=== PATIENT | male | born 1955 | race Caucasian/White ===

== ENCOUNTER 2019-01-09 06:55 | Day surgery (SDC) | payer OTHER ==
[2019-01-07 14:52] VITALS: BMI 26.6
[~2019-01-09 06:55] MED LIST: LIDOCAINE 1% 20 ML VIAL (10MG/ML) FOR IV START INTRADERMA PRN
[2019-01-09 07:19] VITALS: TEMP 98.8
[2019-01-09] MEDS: LACTATED RINGERS 1,000 ML IV SCH ×2 (07:28→07:50)
[2019-01-09] MEDS ORDERED: DEXTROSE 10 % IN WATER 250 ML IV ONE ×2 (07:39→08:00)
[2019-01-09 07:41] LABS: Glucose,Whole Blood 71 mg/dL (75-99)
[2019-01-09 07:41] LABS: Glucose,Whole Blood 70 mg/dL (75-99)
[2019-01-09] MEDS ORDERED: LIDOCAINE 1% INJ 10MG/ML (20 ML MDV) ONE (07:50)
[2019-01-09] MEDS ORDERED: PROPOFOL 10 MG/ML 20 ML VIAL IV ONE (07:50)
--- NOTE | 2019-01-09 08:00 | P.PCN ---
Date of Procedure: 01/09/19 Procedure(s) Performed: BRIEF HISTORY: Patient is a 63-year-old, pleasant, white male, scheduled for an upper endoscopy as a part of evaluation of long-standing history of GERD of almost 15 years duration. His been maintained on lansoprazole 30 mg daily but has breakthrough nocturnal symptoms quite often. He scheduled for an upper endoscopy to rule out completed reflux disease. PROCEDURE PERFORMED: Esophagogastroduodenoscopy with biopsy. PREOPERATIVE DIAGNOSIS: Long-standing history of GERD. IV sedation per anesthesia. PROCEDURE: After informed consent was obtained, the patient was brought into the endoscopy unit. IV sedation was administered by Anesthesia under continuous monitoring. Initially the Olympus GIF-140 video endoscope was inserted into the mouth. Esophagus intubated without any difficulty. It was gradually advanced into the stomach and duodenum and carefully examined. The bulb and the second part of the duodenum appeared normal. The scope at this time was withdrawn to the stomach, adequately insufflated with air, and upon careful examination, mucosa of the antrum had mild gastritis and biopsies were done from this area. The, body, cardia and the fundus appeared normal. The scope was then withdrawn into the esophagus. The GE junction was located at 42 cm from the incisors. The esophagus appeared normal. There were no erosions or ulcerations seen, biopsies were done from the distal esophagus and the patient tolerated the procedure well. IMPRESSION: 1. Mild antral gastritis. 2. Normal appearing esophagus with no evidence of esophagitis or Mohamud's esophagus. RECOMMENDATIONS: The findings of this examination were discussed with the patient as well as his family. He was advised to follow with the biopsy results. He will continue with lansoprazole 30 mg daily but he was advised to take it half hour before dinnertime and follow antireflux measures.
[2019-01-09] MEDS ORDERED: IV FLUID CONTINUATION 1,000 ML IV ONE (08:03)
[2019-01-09 08:07] LABS: Glucose,Whole Blood 166 mg/dL (75-99)
[2019-01-09 08:22] VITALS: BP 134/85; PULSE 61; RESP 18
== END 2019-01-09 08:46 | disposition home or self-care (01) ==
LOC: ORWHC2ENDO 06:55
PROVIDERS: ATTEND Internal Medicine Gastroenterology
DX: K29.50 Unspecified chronic gastritis without bleeding (principal); K21.9 Gastro-esophageal reflux disease without esophagitis; I10 Essential (primary) hypertension; E78.5 Hyperlipidemia, unspecified; E11.9 Type 2 diabetes mellitus without complications; Z79.84 Long term (current) use of oral hypoglycemic drugs; Z79.899 Other long term (current) drug therapy
CPT/HCPCS: 88305; 43239; J2001; J2704

== ENCOUNTER → 2019-03-02 | Outpatient (CLI) | payer OTHER ==
--- NOTE | 2019-03-02 11:25 | US ---
EXAMINATION TYPE: US venous doppler duplex LE LT DATE OF EXAM: 03/02/2019 10:57 AM COMPARISON: NONE CLINICAL HISTORY: M79.605 Pain left leg. SIDE PERFORMED: Left TECHNIQUE: The lower extremity deep venous system is examined utilizing real time linear array sonog lilo with graded compression, doppler sonography and color-flow sonography. VESSELS IMAGED: External Iliac Vein (EIV) Common Femoral Vein Deep Femoral Vein Greater Saphenous Vein * Femoral Vein Popliteal Vein Small Saphenous Vein * Proximal Calf Veins (* superficial vessels) Grayscale, color doppler, spectral doppler imaging performed of the deep veins of the left lower extr emity. There is normal flow, compressibility, vascular waveforms. Left Leg: Negative for DVT IMPRESSION: No sonographic evidence of deep venous thrombosis within the left lower extremity.
== END ==
LOC: RADUSWWP 10:21
PROVIDERS: ATTEND Internal Medicine
DX: M79.605 Pain in left leg (principal)

== ENCOUNTER → 2019-12-18 | Outpatient (CLI) | payer OTHER ==
--- NOTE | 2019-12-18 15:45 | ECHOF ---
Referral Reason:I50.9 Edema due to congestive heart failure MEASUREMENTS -------- HEIGHT: 185.4 cm WEIGHT: 104.3 kg BP: IVSd: 1.3 cm (0.6 - 1.1) LVIDd: 5.1 cm (3.9 - 5.3) LVPWd: 1.5 cm (0.6 - 1.1) IVSs: 2.3 cm LVIDs: 2.3 cm LVPWs: 2.1 cm LAESV Index (A-L): 27.28 ml/m Ao Diam: 3.2 cm (2.0 - 3.7) AV Cusp: 2.2 cm (1.5 - 2.6) LA Diam: 3.9 cm (2.7 - 3.8) MV EXCURSION: 18.395 mm (> 18.000) MV EF SLOPE: 122 mm/s (70 - 150) EPSS: 0.7 cm MV E Carlos: 1.09 m/s MV DecT: 237 ms MV A Carlos: 0.55 m/s MV E/A Ratio: 2.00 RAP: 5.00 mmHg RVSP: 16.50 mmHg FINDINGS -------- This was a technically good study. The left ventricular size is normal. There is moderate concentric left ventricular hypertrophy. O verall left ventricular systolic function is normal with, an EF between 55 - 60 %. The diastolic fi lling pattern is normal for the age of the patient 13.58. The right ventricle is normal in size. The left atrial size is normal. Normal LA size by volume 22+/-6 ml/m2. The right atrial size is normal. The aortic valve is trileaflet and appears structurally normal. The mitral valve is normal. There is trace mitral regurgitation. The tricuspid valve appears structurally normal. Trace tricuspid regurgitation present. Right carlos tricular systolic pressure is normal at < 35 mmHg. There is no pulmonic regurgitation present. The aortic root size is normal. Normal inferior vena cava with normal inspiratory collapse consistent with estimated right atrial pre ssure of 5 mmHg. There is no pericardial effusion. CONCLUSIONS -------- 1. The left ventricular size is normal. 2. There is moderate concentric left ventricular hypertrophy. 3. Overall left ventricular systolic function is normal with, an EF between 55 - 60 %. 4. The diastolic filling pattern is normal for the age of the patient 13.58 5. There is trace mitral regurgitation. 6. Trace tricuspid regurgitation present. 7. There is no pericardial effusion. PHOTOGRAPHER APPRENTICE: Germaine Lynch RDCS
== END | disposition home or self-care (01) ==
LOC: RADECHMAIN 13:52
PROVIDERS: ATTEND Internal Medicine
DX: I51.7 Cardiomegaly (principal)
CPT/HCPCS: 93306

== ENCOUNTER → 2021-03-08 | Outpatient (CLI) | payer OTHER ==
[~2021-03-08] MED LIST changes: -LIDOCAINE 1% 20 ML VIAL (10MG/ML) FOR IV START INTRADERMA PRN; +REGADENOSON 0.4 MG/5 ML SYRINGE IV PRN
--- NOTE | 2021-03-08 11:31 | NM ---
EXAMINATION TYPE: NM stress lexiscan cardiolite DATE OF EXAM: 03/08/2021 COMPARISON: NONE HISTORY: Z01.810 TECHNIQUE: After the intravenous administration of 9.54 mCi Tc 99m Sestamibi - Cardiolite resting SP ECT images acquired 45 minutes post injection. The patient received 0.4mg Lexiscan, 25.2 mCi Tc 99m Sestamibi - Stress images obtained [address] injection FINDINGS: Review of stress and rest SPECT images demonstrates decreased apical uptake on stress as compared to rest images, uptake also reduced along the inferior wall the left ventricle towards the base the hear t on stress as compared to rest images. Gated analysis shows normal wall motion with an estimated le ft ventricular ejection fraction of 61 %. IMPRESSION: Pharmacologically induced left ventricular myocardial ischemia. A Yellow level critical message alert has been initiated for Audi Phan MD via the [employer] Critical Results System on 03/08/2021 11:28 AM. This message alert has been sent to MD nya Ulloa the preferences provided by the clinician for the receipt of Radiology Critical Findings. Message ID [id number].
--- NOTE | 2021-03-09 08:55 | EST ---
EXERCISE STRESS AGE: 65 SEX: M HT: 6'3" WT: 230 lbs. PROTOCOL: Pre surgical clearance STAGE: NA DURATION OF EXERCISE: 5 minutes HEART RATE REST: 71 BLOOD PRESSURE REST: 132/69 MAXIMUM HEART RATE ACHIEVED: 82 MAXIMUM BLOOD PRESSURE: 132/69 85% MPHR: 133 100% MPHR: 157 METS: NA INDICATIONS: Chest pain. STRESS DATA: Heart rate 71, pressure is 132/69 mmHg. Baseline EKG showed sinus mechanism with PVCs. 0.4 mg of Lexiscan per protocol. Max heart rate was 83 beats per minute. Maximum pressure was 132/69 mmHg. Clinically the patient did not have any symptoms and the EKG did not show any significant ST or T-wave abnormalities concerning for ischemia. CONCLUSION: 1. Nondiagnostic electrocardiogram stress testing in response to Lexiscan. 2. Please follow up on the Cardiolite portion on a separate report from Radiology Department. MMODL / IJN: [id number] /
== END | disposition home or self-care (01) ==
LOC: RADNMMAIN 08:09
PROVIDERS: ATTEND Internal Medicine
DX: Z01.810 Encounter for preprocedural cardiovascular examination (principal); I25.9 Chronic ischemic heart disease, unspecified
CPT/HCPCS: 93017; 78452; A9500; J2785

== ENCOUNTER → 2021-04-19 | Outpatient (CLI) | payer OTHER ==
[2021-04-19 12:00] LABS: INR 0.9 (<1.2)
[2021-04-19 12:17] LABS: Appearance,Urine Clear (Clear); Bilirubin,Urine Negative (Negative); Blood,Urine Negative (Negative); Color,Urine Light Yellow; Glucose,Urine (UA) 4+ (Negative); Ketones,Urine Negative (Negative); Leukocyte Esterase,Urine Negative (Negative); Nitrite,Urine Negative (Negative); PH, Urine 5.5 (5.0-8.0); Protein,Urine Negative (Negative); Specific Gravity,Urine 1.038 (1.001-1.035); Urobilinogen,Urine <2.0 mg/dL (<2.0)
[2021-04-19 12:19] LABS: Partial Thromboplastin Time 21.9 sec (22.0-30.0)
[2021-04-19 15:06] LABS: HCT 34.2 % (39.6-50.0); HGB 10.1 g/dL (13.0-17.0); MCH 22.1 pg (27.0-32.0); MCHC 29.5 g/dL (32.0-37.0); MCV 74.8 fL (80.0-97.0); Mean Platelet Volume 10.3 fL (9.5-12.2); Platelet Count 203 X 10*3/uL (140-440); RBC 4.57 X 10*6/uL (4.40-5.60); WBC 5.71 X 10*3/uL (4.50-10.00)
[2021-04-19 16:23] LABS: ALT 30 U/L (10-49); AST 23 U/L (14-35); Albumin 4.1 g/dL (3.8-4.9); Albumin/Globulin Ratio 1.46 (1.60-3.17); Alkaline Phosphatase 89 U/L (41-126); BUN/Creat Ratio 18.89 Ratio (12.00-20.00); Carbon Dioxide 20.8 mmol/L (20.0-27.5); Chloride 100 mmol/L (96-109); Globulin 2.8 g/dL (1.6-3.3); Glucose 252 mg/dL (70-110); Non-African American GFR(CKD) 90.6 (60.0-200.0); Potassium 4.6 mmol/L (3.5-5.5); Sodium 133 mmol/L (135-145); Total Bilirubin <0.20 mg/dL (0.30-1.20); Total Protein 6.9 g/dL (6.2-8.2)
== END | disposition home or self-care (01) ==
LOC: LABPAT 10:39
PROVIDERS: ATTEND Orthopaedic Surgery
DX: Z01.812 Encounter for preprocedural laboratory examination (principal)
CPT/HCPCS: 80053; 81003; 85027; 85610; 85730; 87070; 93005

== ENCOUNTER → 2021-04-21 | Outpatient (CLI) | payer OTHER | END | disposition home or self-care (01) | LOC: LABWHC1 11:33 | PROVIDERS: ATTEND Orthopaedic Surgery | DX: E11.9 Type 2 diabetes mellitus without complications (principal); M17.0 Bilateral primary osteoarthritis of knee; M23.221 Derangement of posterior horn of medial meniscus due to old tear or injury, right knee; M62.552 Muscle wasting and atrophy, not elsewhere classified, left thigh; M71.22 Synovial cyst of popliteal space [Baker], left knee; Z87.828 Personal history of other (healed) physical injury and trauma | CPT/HCPCS: 36415; 83036 ==

== ENCOUNTER 2021-07-10 10:45 | Observation (INO) | payer OTHER ==
[2021-07-06 11:46] VITALS: BMI 28.1
[~2021-07-10 10:45] MED LIST changes: +ACETAMINOPHEN TAB 500 MG TAB PO PRN; +MELOXICAM 7.5 MG TAB PO PRN; +ONDANSETRON 4 MG/2 ML VIAL IVP PRN; -REGADENOSON 0.4 MG/5 ML SYRINGE IV PRN; +TRANEXAMIC ACID IN NACL,ISO-OS 1,000 MG in SALINE 1 100ML.BAG IVPB PRN
[2021-07-10] MEDS ORDERED: LACTATED RINGERS 1,000 ML IV ONE ×4 (11:12→16:30)
[2021-07-10] MEDS ORDERED: LIDOCAINE 1% (10MG/ML) FOR IV START INTRADERMA PRN (11:14)
[2021-07-10] MEDS ORDERED: ONDANSETRON 4 MG/2 ML VIAL IVP ONE (11:14)
[2021-07-10] MEDS ORDERED: DEXAMETHASONE SOD PHOSPHATE 4 MG/ML 1 ML VIAL IV ONE (11:14)
[2021-07-10] MEDS ORDERED: MIDAZOLAM 2 MG/2 ML VIAL IV PRN (11:14)
[2021-07-10] MEDS ORDERED: fentaNYL (PF) 50 MCG/ML 2 ML AMP IV ONE (12:11)
[2021-07-10] MEDS ORDERED: MIDAZOLAM 2 MG/2 ML VIAL IV ONE (12:11)
[2021-07-10] MEDS ORDERED: ROPIVACAINE 5 MG/ML 30 ML VIAL ONE (12:35)
[2021-07-10] MEDS ORDERED: DEXAMETHASONE SOD PHOSPHATE 4 MG/ML 1 ML VIAL ONE (12:35)
[2021-07-10] MEDS ORDERED: SODIUM CHLORIDE 0.9% (PF) 10 ML VIAL ONE (12:35)
[2021-07-10] MEDS ORDERED: fentaNYL (PF) 50 MCG/ML 2 ML AMP ONE (12:35)
[2021-07-10] MEDS ORDERED: MIDAZOLAM 2 MG/2 ML VIAL ONE (12:35)
[2021-07-10] MEDS ORDERED: PROPOFOL 10 MG/ML 20 ML VIAL IV ONE (12:35)
[2021-07-10] MEDS ORDERED: SUCCINYLCHOLINE CHLORIDE 100 MG/5 ML SYR IV ONE (12:35)
[2021-07-10] MEDS ORDERED: LIDOCAINE 2% INJ 20 MG/ML (2 ML VIAL) ONE (12:35)
[2021-07-10] MEDS ORDERED: TRANEXAMIC ACID IN NACL,ISO-OS 1,000 MG/100 ML BAG ONE (12:35)
[2021-07-10] MEDS ORDERED: ceFAZolin 3,000 MG in SODIUM CHLORIDE 0.9% IRRIGATIO 3,000 ML IRRIGATION ONE (12:40)
[2021-07-10] MEDS ORDERED: ROPIVACAINE 0.2%-NS ON-Q PUMP 1,090 MG, EMPTY PAIN BALL 1 EACH MISCELLANE PRN (13:10)
--- NOTE | 2021-07-10 13:44 | P.ANPRN ---
Procedure Note - Anesthesia - Nerve Block Performed Left Adductor Canal Infusion Time Out Performed: Yes Date of Procedure: 07/10/21 Procedure Start Time: 12:10 Procedure Stop Time: 12:21 Location of Patient: PreOp Indication: Requested by Surgeon Specifically requested for management of pain by DrYvette: Tobias Hollins Sedation Type: Sedate with meaningful contact maintained Preparation: Sterile Prep, Sterile Dressing Position: Supine Needle Types: Pajunk Needle Gauge: 18 Ultrasound used to visualize needle placement: Yes Ultrasound used to observe medication spread: Yes Injectate: 0.5% Ropivacaine (see comment for volume) (20 ml +10 ML NS) Blood Aspirated: No Pain Paresthesia on Injection Noted: No Resistance on Injection: Normal Image Stored and Saved: Yes Events: Uneventful and Well Tolerated
--- NOTE | 2021-07-10 13:46 | P.ANPRN ---
Procedure Note - Anesthesia - Nerve Block Performed Left iPack Single Time Out Performed: Yes Date of Procedure: 07/10/21 Procedure Start Time: Procedure Stop Time: Location of Patient: PreOp Indication: Requested by Surgeon Specifically requested for management of pain by DrYvette: Tobias Hollins Sedation Type: Sedate with meaningful contact maintained Preparation: Sterile Prep Position: Right Lateral Needle Types: Pajunk Needle Gauge: 21 Ultrasound used to visualize needle placement: Yes Ultrasound used to observe medication spread: Yes Injectate: 0.5% Ropivacaine (see comment for volume) (20 ML + 10 ml NS +4 mg dexamethason) Blood Aspirated: No Pain Paresthesia on Injection Noted: No Resistance on Injection: Normal Image Stored and Saved: Yes Events: Uneventful and Well Tolerated
[2021-07-10] MEDS ORDERED: VANCOMYCIN 1,000 MG VIAL MISCELLANE ONE (14:03)
--- NOTE | 2021-07-10 14:30 | P.OP ---
Date of Procedure: 07/10/21 Procedure(s) Performed: PREOPERATIVE DIAGNOSIS: Left knee severe osteoarthritis with genu varum POSTOPERATIVE DIAGNOSIS: Left knee severe osteoarthritis with genu varum OPERATION: Left knee cemented total replacement arthroplasty. ANESTHESIA: General plus regional (IPAC and catheter for ACB) ESTIMATED BLOOD LOSS: 75 ml. PROCESS CONTROLS TECHNICIAN: Germaine Boo PA-C (assistance with: patient positioning, retraction, exposure, hemostasis, leg positioning, implantation, irrigation, closure, dressing) COMPLICATIONS: None apparent. COMPONENTS IMPLANTED: Persona system from [employer] INDICATIONS: Gilmer is a 65 year old male with a history of left knee osteoarthritis. Conservative treatment has been tried and has been unsuccessful in controlling symptoms adequately. He has a medial staple for presumed ligament repair that was placed in the remote past which does not appear to be in a position to affect surgery. The operation of knee replacement has been discussed at length in the office, as well as potential risks and complications. These are inclusive of, but not limited to: bleeding, infection, scarring, discomfort, blood vessel and nerve damage, need for further surgery, failure to relieve symptoms, persistence, recurrence, or worsening of problems, loosening, dislocation, wear, blood clot, pulmonary embolism, , gait dysfunction, stiffness, and other risks as discussed in the office. The patient elects to proceed and the consent form has been signed. PROCEDURE: The patient was taken to the operating room and positioned on the operating room table in the supine position. Anesthesia was initiated. Care was taken to make sure that all pressure points were adequately padded. The operative lower extremity was prepped and draped in the usual aseptic fashion using ChloraPrep. Ioban drape was used for the case and the patient received intravenous antibiotics within one hour of the incision. A pneumotourniquet and leg coronel were used for the case. The limb was exsanguinated with an Esmarch bandage and the tourniquet was inflated to 300 mmHg. Time-out was called confirming the patient's identity, side, procedure and administration of antibiotics and tranexamic acid, 1 g IV. The incision was then created midline directly over the knee, carried down through skin and into the subcutaneous tissues and down to fascia. Full thickness subcutaneous medial flap was developed. Medial parapatellar arthrotomy was performed and the interior of the knee was inspected. There was end-stage osteoarthritis of the knee with a mild to moderate genu varum type deformity. The fat pad was excised and proximal medial release on the tibia was completed using meticulous dissection and a curved osteotome. The anterior cruciate ligament was taken down. Note was made of significant attrition of the anterior and significant degenerative appearance of the posterior cruciate ligaments. The exposure was excellent. The knee was flexed 90 degrees and the patella was everted. A spot was chosen on the femur approximately 1 cm anterior to the posterior cruciate ligament insertion and an intramedullary hole was created within the femur. The intramedullary guide was then set to 5 degrees of valgus. The distal cutting block was attached and pinned into position. An appropriate amount of distal femoral resection was set to +2 mm for his preop flexion contracture. The oscillating saw was then used to make the distal femoral cut. This cut was confirmed to be flat with the flat end of an osteotome. The retractors were placed around the tibia and the tibial surface was addressed. The angle, rotation, and depth of resection was adjusted using an extramedullary cutting guide. The guide had a built-in 3 degree posterior slope cut. Once the cutting guide was adjusted appropriately and in line with the axis of the tibia and confirmed to be in good position in relation to the second metatarsal and transmalleolar axis, the tibial cut was then created with protection of the posterior neurovascular structures and the collateral ligaments. The tibial cut surface was removed and sized. Femoral sizing was then accomplished using anterior referencing. Care was taken to analyze the posterior condyles for signs of deficiency or severe wear, and adjustments to the guide were made, as appropriate. 3 degree external rotation pins were placed. The cutting jig for the femur was applied to these pins. The planned cuts were further analyzed prior to performing them with the oscillating saw. No femoral notching was produced and there was no apparent contact with the medial staple. Bone fragments were removed and the cut surfaces were finished, as necessary, with a reciprocating saw. Spacer block technique was then used to confirm that the flexion and extension gaps were equal. Soft tissue releases and adjustment of the tibial and/or femoral cuts were made, as necessary, until the gaps were equal. This included release of the posterior cruciate ligament, which was tight in this patient. The femur was then further finished for a posterior cruciate ligament substi tuting component. Patellar resurfacing was performed using a reamer. The size of the required patellar component was estimated and the patellar surface was then reamed down to a residual thickness which would recreate the soboba thickness with the component. The exact placement of the patellar component was adjusted for position based on preoperative x-rays and intraoperative findings. The trial components were inserted. The tibial tray was allowed to self center and the patella was noted to track very well. The position of the tibial component was marked and the tibia was then finished for a stemmed tibial component. Cement was mixed on the back table and applied to the final components. Trial components were removed and the cut surfaces of the bone were pulse lavaged thoroughly and dried. Cement was then applied to the tibial surface and pressurized into the surface using finger pressurization technique. The tibial component was then applied and excess cement was removed after it was impacted securely and noted to be flush with the cut surface. In similar fashion, the cement was applied to the cut femoral surface, pressurized in using finger pressurization and the component was impacted into place. Excess cement was removed. The polyethylene spacer was then implanted and locked into position. The patellar component was then applied in similar technique and a patellar clamp was used to hold the patella in place as the cement hardened. Once the cement had fully hardened, the knee was reinspected. Any other cement extrusion was removed and final kinematic testing showed range of motion from 0 to 130 degrees with excellent stability, both medially and laterally and appropriate alignment of the leg. Patellar tracking was excellent. The knee was then thoroughly pulse lavaged with normal saline. The tourniquet was deflated and hemostasis was obtained with electrocautery and IV tranexamic acid, 1 g given prior to inflation of the tourniquet and another gram given at the time of closure. Closure was with #2 Ethibond in the fascia and supplemented with #2 Quill, 2-0 Vicryl suture was used for the subcutaneous tissues and 3-0 Quill for the skin. Dermabond/Steri-Strips were then applied. A lightly compressive dressing was applied using Webril and an Julian wrap. The patient was then transferred to stretcher and taken to the recovery room in stable condition. Sponge and needle counts were correct.
[2021-07-10] MEDS ORDERED: TEMAZEPAM 15 MG CAP PO PRN (14:53)
[2021-07-10] MEDS ORDERED: HYDROmorphone 1 MG/ML 1 ML SYRINGE IVP PRN (14:53)
[2021-07-10] MEDS ORDERED: MAGNESIUM HYDROXIDE 2,400 MG/10 ML CUP PO PRN (14:53)
[2021-07-10] MEDS ORDERED: ONDANSETRON 4 MG/2 ML VIAL IVP PRN (14:53)
[2021-07-10] MEDS ORDERED: HYDROmorphone 0.5 MG/0.5 ML SYRINGE IVP PRN (14:53)
[2021-07-10] MEDS ORDERED: NALOXONE 0.4 MG/ML 1 ML VIAL IV PRN (14:53)
[2021-07-10] MEDS ORDERED: HYDROmorphone 0.2 MG/1 ML SYRINGE IVP PRN (14:53)
--- NOTE | 2021-07-10 16:13 | XR ---
EXAMINATION TYPE: XR knee limited LT DATE OF EXAM: 07/10/2021 COMPARISON: NONE TECHNIQUE: Two views submitted HISTORY: Post op FINDINGS: There is a prosthetic knee in near anatomic alignment. There is soft tissue edema and emphysema. IMPRESSION: 1. Postoperative change. Appears in near-anatomic alignment
[2021-07-10] MEDS: HYDROmorphone 0.5 MG/0.5 ML SYRINGE IVP PRN ×3 (17:45→21:00)
[2021-07-10] MEDS ORDERED: HYDROmorphone 0.5 MG/0.5 ML SYRINGE IVP ONE (19:21)
[2021-07-10] MEDS ORDERED: SENNOSIDES-DOCUSATE SODIUM 1 EACH TAB PO SCH (21:00)
[2021-07-10] MEDS ORDERED: FLUoxetine HCL 20 MG CAP PO SCH (22:00)
[2021-07-10] MEDS ORDERED: FENOFIBRATE 160 MG TAB PO SCH (22:00)
[2021-07-10] MEDS ORDERED: LORazepam 1 MG TAB PO SCH (22:15)
[2021-07-10] MEDS ORDERED: BENZTROPINE MESYLATE 1 MG TAB PO SCH (22:15)
[2021-07-10] MEDS ORDERED: ARIPiprazole 15 MG TAB PO SCH (22:15)
[2021-07-10] MEDS ORDERED: PANTOPRAZOLE 40 MG TABLET PO SCH (22:15)
[2021-07-10] MEDS: ASPIRIN 81 MG PO SCH (22:34)
[2021-07-10] MEDS: ATORVASTATIN 40 MG TAB PO SCH (22:35)
[2021-07-10] MEDS: GLIMEPIRIDE 4 MG TAB PO SCH (22:36)
[2021-07-10] MEDS: NON FORMULARY DRUG (Sitagliptin Phos/Metformin Hcl [Janumet 50-1,000 Mg Tablet] 1 EACH Tab PO SCH (22:44)
[2021-07-10] MEDS: LACTATED RINGERS 1,000 ML IV SCH ×2 (22:44)
[2021-07-11] MEDS: LACTATED RINGERS 1,000 ML IV SCH ×3 (05:12→12:55)
[2021-07-11] MEDS: HYDROcodone/APAP 7.5-325MG 1 EACH TAB PO PRN ×2 (05:17→10:29)
--- NOTE | 2021-07-11 07:06 | P.PN ---
Progress Note - Text Progress Note Date: 07/11/21 Postoperative day # 1 status post total knee arthroplasty, and adductor canal catheter placed for postoperative analgesia, currently at ropivacaine 0.2% 8 mL per hour and continuous infusion, visual analogue scale is 4/10, patient using oral pain medication for breakthrough pain. Assessment and plan= Acute postoperative pain, adductor canal catheter for pain control, pain is well controlled we'll continue the same management.
[2021-07-11 07:35] VITALS: PULSE 60; RESP 17; TEMP 98.4
[2021-07-11 07:43] VITALS: BP 112/66
--- NOTE | 2021-07-11 08:31 | P.DS ---
Providers Expected date of discharge: 07/11/21 Attending physician: Tobias Hollins Consults: 07/10/21 14:58 Consult Physician Routine Consulting Provider: Audi Phan Consult Reason/Comments: Medical management if pt stays. Do you want consulting provider notified?: Yes Primary care physician: Audi Phan - Discharge Diagnosis(es) (1) Osteoarthritis of left knee Current Visit: Yes Status: Acute (2) S/P total knee arthroplasty Current Visit: Yes Status: Acute Hospital Course: This is a 65-year-old male with known history of degenerative arthritis of the left knee. The patient presented for evaluation as an outpatient. After discussion and consideration patient elects to proceed with total knee arthroplasty. The patient is seen preoperatively by Dr. Hollins and medically cleared for surgery by their primary care physician. Patient is admitted to [facility] on 07/10/2021 for total knee arthroplasty. The procedure is performed without complication or sequelae. The patient is doing well postoperatively. Labs and vital signs are stable on day of discharge. On day of discharge patient's knee incision is healing well. There is minimal erythema. There is no drainage noted at this time. There is minimal soft tissue swelling to the knee. Patient has full foot and ankle motion without difficulty or pain. Calf is soft and nontender to palpation. Neurovascular status to the left lower extremity is intact. Patient is discharged home in good condition. Please see med rec for accurate list of home medications. Plan - Discharge Summary Discharge Rx Participant: No New Discharge Prescriptions: New Meloxicam [Mobic] 1 - 2 tab PO DAILY PRN #60 tab PRN Reason: Pain Gabapentin [Neurontin] 300 mg PO BID 5 Days #10 cap HYDROcodone/APAP 7.5-325MG [[place] 7.5-325] 1 - 2 tab PO Q6HR PRN #32 tab PRN Reason: Pain Ondansetron Odt [Zofran Odt] 4 mg PO Q8HR PRN #14 tab PRN Reason: Nausea Aspirin [Adult Low Dose Aspirin EC] 81 mg PO BID #1 tab Sennosides-Docusate Sodium [Senokot-S] 1 tab PO BID #60 tablet No Action lisinopriL [Zestril] 2.5 mg PO HS Glimepiride [Amaryl] 4 mg PO BID sitaGLIPtin PHOS/metFORMIN HCL [Janumet 50-1,000 mg Tablet] 1 each PO BID Lansoprazole [Prevacid] 30 mg PO HS LORazepam [Ativan] 3 mg PO HS FLUoxetine HCL [PROzac] 20 mg PO HS Benztropine Mesylate [Cogentin] 1 mg PO HS ARIPiprazole [Abilify] 30 mg PO HS Fenofibrate Nanocrystallized [Fenofibrate] 145 mg PO HS Dapagliflozin Propanediol [Farxiga] 10 mg PO DAILY Atorvastatin [Lipitor] 40 mg PO DAILY Mupirocin 2% Oint [Bactroban 2% Oint] 1 applic NASAL DAILY Aspirin/Acetaminophen/Caffeine [Excedrin Extra Strength Caplet] 1 each PO DAILY PRN PRN Reason: Pain Discharge Medication List ARIPiprazole [Abilify] 30 mg PO HS 01/07/19 [History] Benztropine Mesylate [Cogentin] 1 mg PO HS 01/07/19 [History] FLUoxetine HCL [PROzac] 20 mg PO HS 01/07/19 [History] Fenofibrate Nanocrystallized [Fenofibrate] 145 mg PO HS 01/07/19 [History] Glimepiride [Amaryl] 4 mg PO BID 01/07/19 [History] LORazepam [Ativan] 3 mg PO HS 01/07/19 [History] Lansoprazole [Prevacid] 30 mg PO HS 01/07/19 [History] lisinopriL [Zestril] 2.5 mg PO HS 01/07/19 [History] sitaGLIPtin PHOS/metFORMIN HCL [Janumet 50-1,000 mg Tablet] 1 each PO BID 01/07/19 [History] Aspirin/Acetaminophen/Caffeine [Excedrin Extra Strength Caplet] 1 each PO DAILY PRN 07/06/21 [History] Atorvastatin [Lipitor] 40 mg PO DAILY 07/06/21 [History] Dapagliflozin Propanediol [Farxiga] 10 mg PO DAILY 07/06/21 [History] Mupirocin 2% Oint [Bactroban 2% Oint] 1 applic NASAL DAILY 07/06/21 [History] Aspirin [Adult Low Dose Aspirin EC] 81 mg PO BID #1 tab 07/10/21 [Rx] Gabapentin [Neurontin] 300 mg PO BID 5 Days #10 cap 07/10/21 [Rx] HYDROcodone/APAP 7.5-325MG [[place] 7.5-325] 1 - 2 tab PO Q6HR PRN #32 tab 07/10/21 [Rx] Meloxicam [Mobic] 1 - 2 tab PO DAILY PRN #60 tab 07/10/21 [Rx] Ondansetron Odt [Zofran Odt] 4 mg PO Q8HR PRN #14 tab 07/10/21 [Rx] Sennosides-Docusate Sodium [Senokot-S] 1 tab PO BID #60 tablet 07/10/21 [Rx] Follow up Appointment(s)/Referral(s): Germaine Boo, PAC [PHYSIC[employer]] - 2 Weeks Patient Instructions/Handouts: *Surgery [facility] - (Anesthesia) Discharge Instructions Outpatient Surgery, Knee Replacement (GEN) Activity/Diet/Wound Care/Special Instructions: May bear wt as tolerated w walker. Keep optifoam dressing intact 7 days. May shower 2 days post op. Discharge Disposition: HOME SELF-CARE
[2021-07-11] MEDS ORDERED: MELOXICAM 7.5 MG TAB PO SCH (09:00)
[2021-07-11] MEDS: GLIMEPIRIDE 4 MG TAB PO SCH (09:08)
[2021-07-11] MEDS: ATORVASTATIN 40 MG TAB PO SCH (09:08)
[2021-07-11] MEDS: ASPIRIN 81 MG PO SCH (09:08)
[2021-07-11 09:09] LABS: HCT 32.7 % (39.6-50.0); HGB 9.5 g/dL (13.0-17.0); MCH 21.2 pg (27.0-32.0); MCHC 29.1 g/dL (32.0-37.0); MCV 72.8 fL (80.0-97.0); Mean Platelet Volume 10.7 fL (9.5-12.2); NRBC Per 100 WBC 0 /100 WBCS (0.0-0.0); Platelet Count 215 X 10*3/uL (140-440); RBC 4.49 X 10*6/uL (4.40-5.60); RDW 17.3 % (11.5-14.5); WBC 9.86 X 10*3/uL (4.50-10.00)
[2021-07-11] MEDS: NON FORMULARY DRUG (Sitagliptin Phos/Metformin Hcl [Janumet 50-1,000 Mg Tablet] 1 EACH Tab PO SCH (09:09)
[2021-07-11 09:51] LABS: Acanthocytes 2+; Basophils # (A) 0.02 X 10*3/uL (0.00-0.10); Basophils % (A) 0.2 %; Eosinophils # (A) 0.02 X 10*3/uL (0.04-0.35); Eosinophils % (A) 0.2 %; Immature Grans, Automated 0.5 %; Lymphocytes # (A) 1.51 X 10*3/uL (0.90-5.00); Lymphocytes % (A) 15.3 %; Microcytosis (M) 2+; Monocytes # (A) 0.85 X 10*3/uL (0.20-1.00); Monocytes % (A) 8.6 %; Neutrophils # (A) 7.41 X 10*3/uL (1.80-7.70); Neutrophils % (A) 75.2 %
--- NOTE | 2021-07-11 14:37 | P.CONS ---
History of Present Illness - Reason for Consult Consult date: 07/11/21 Medical management - History of Present Illness HISTORY OF PRESENT ILLNESS This is a 65-year-old male patient with past medical history of hypertension, hyperlipidemia, diabetes mellitus type 2 with diabetic neuropathy, vitamin D deficiency, schizophrenia, bipolar disorder, gastroesophageal reflux disease, benign prostatic hypertrophy. Patient has been brought in the hospital under the care of Dr. Hollins is post left total knee arthroplasty, postop day #1. Patient states he is having some difficulty with pain control #7/10. He has worked with physical therapy including the stairs today. He denies having any lightheadedness or dizziness, no chest pain or shortness of breath, appetite is adequate. He has not had a bowel movement. He states he is urinating without difficulty. Patient is utilizing incentive spirometry. Patient has been afebrile, heart rate in the 60s, blood pressure 112/66, pulse ox 97% on room air. Patient is anticipating discharge home today. Medication reconciliation is been completed for discharge. REVIEW OF SYSTEMS Constitutional: No fever, no chills, no night sweats. No weight change. No weakness, fatigue or lethargy. No daytime sleepiness. EENT: No headache. No blurred vision or double vision, no loss of vision. No loss of Hearing, no ringing in the ears, no dizziness. No nasal drainage or congestion. No epistaxis. No sore throat. Lungs: No shortness of breath, cough, no sputum production. No wheezing. Cardiovascular: No chest pain, no lower extremity edema. No palpitations. No paroxysmal nocturnal dyspnea. No orthopnea. No lightheadedness or dizziness. No syncopal episodes. Abdominal: No abdominal pain. No nausea, vomiting. No diarrhea. No constipation. No bloody or tarry stools. No loss of appetite. Genitourinary: No dysuria, increased frequency, urgency. No urinary retention. Musculoskeletal: No myalgias. No muscle weakness, no gait dysfunction, no frequent falls. No back pain. No neck pain. Reports left knee pain. Integumentary: No wounds, no lesions. No rash or pruritus. No unusual bruising. No change in hair or nails. Neurologic: No aphasia. No facial droop. No change in mentation. No head injury. No headache. No paralysis. No paresthesia. Psychiatric: No depression. No anxiety. No mood swings. Endocrine: No abnormal blood sugars. No weight change. No excessive sweating or thirst. No cold intolerance. MEDICAL HISTORY Hypertension Hyperlipidemia Diabetes mellitus type 2 with diabetic neuropathy Vitamin D deficiency Schizophrenia Bipolar disorder Gastroesophageal reflux disease Benign prostatic hypertrophy SURGICAL HISTORY Colonoscopy 2013 Ligament repair on the left knee SOCIAL HISTORY Patient is a nonsmoker, no alcohol abuse, no marijuana or illicit drug use. FAMILY HISTORY Father at age 86 from end-stage renal disease on hemodialysis with history of coronary artery disease and CVA. Mother is alive at age 90 with history of osteoarthritis, hypertension chronic pain syndrome. Patient has 2 sisters with no major medical problems. PHYSICAL EXAMINATION Gen: This is a 65-year-old male. He is resting in bed and appears to be comfortable at rest. HEENT: Head is atraumatic, normocephalic. Pupils equal, round. Sclerae is anicteric. NECK: Supple. No JVD. No lymphadenopathy. No thyromegaly. LUNGS: Clear to auscultation. No wheezes or rhonchi. No intercostal retractions. HEART: Regular rate and rhythm. 2/6 systolic ejection murmur at the left sternal border. ABDOMEN: Soft. Bowel sounds are present. No masses. No tenderness. EXTREMITIES: No pedal edema. No calf tenderness. Small dressing and ice packs to the left knee. NEUROLOGICAL: Patient is awake, alert and oriented x3. Cranial nerves 2 through 12 are grossly intact. ASSESSMENT AND PLAN 1. Osteoarthritis status post left total knee arthroplasty. Continue current pain management, aspirin 81 mg twice daily for DVT prophylaxis, incentive spirometry to reduce incidence of atelectasis and hospital-acquired pneumonia. 2. Hypertension. Continue lisinopril 2.5 mg at bedtime. 3. Hyperlipidemia. Continue atorvastatin 40 mg daily. 4. Diabetes mellitus type 2 with diabetic neuropathy. Continue Farxiga 10 mg daily, Janumet [id number] milligrams 1 twice daily, Amaryl 4 mg twice daily, gabapentin 300 mg twice daily. 5. Vitamin D deficiency. Continue supplements. 6. Schizophrenia bipolar disorder. Continue Abilify 30 mg at bedtime, Cogentin 1 mg at bedtime, Prozac 20 mg at bedtime, Ativan 3 mg at bedtime. 7. Gastroesophageal reflux disease. Continue Prevacid 30 mg at bedtime. 8. Benign prostatic hypertrophy. No signs of urinary retention. DISCHARGE PLAN Home. Impression and plan of care have been directed as dictated by the signing physician. Maricruz Walters nurse practitioner acting as scribe for signing physician. Past Medical History Past Medical History: Coronary Artery Disease (CAD), Diabetes Mellitus, GERD/Reflux, Hyperlipidemia, Hypertension, Osteoarthritis (OA) History of Any Multi-Drug Resistant Organisms: None Reported Past Surgical History: Heart Catheterization, Hernia Repair, Orthopedic Surgery Additional Past Surgical History / Comment(s): umbilical hernia repair,. LEFT KNEE SX X 2. COLONOSCOPY X 2. EGD Past Anesthesia/Blood Transfusion Reactions: No Reported Reaction Additional Past Anesthesia/Blood Transfusion Reaction / Comm: no hx blood transfusion Past Psychological History: Anxiety, Schizophrenia Additional Psychological History / Comment(s): borderline schizophrenia Smoking Status: Never smoker Past Alcohol Use History: Occasional Past Drug Use History: None Reported - Past Family History Father Family Medical History: CVA/TIA Medications and Allergies Home Medications Medication Instructions Recorded Confirmed Type ARIPiprazole [Abilify] 30 mg PO HS 01/07/19 07/06/21 History Benztropine Mesylate [Cogentin] 1 mg PO HS 01/07/19 07/06/21 History FLUoxetine HCL [PROzac] 20 mg PO HS 01/07/19 07/06/21 History Fenofibrate Nanocrystallized 145 mg PO HS 01/07/19 07/06/21 History [Fenofibrate] Glimepiride [Amaryl] 4 mg PO BID 01/07/19 07/06/21 History LORazepam [Ativan] 3 mg PO HS 01/07/19 07/06/21 History Lansoprazole [Prevacid] 30 mg PO HS 01/07/19 07/06/21 History lisinopriL [Zestril] 2.5 mg PO HS 01/07/19 07/06/21 History sitaGLIPtin PHOS/metFORMIN HCL 1 each PO BID 01/07/19 07/10/21 History [Janumet 50-1,000 mg Tablet] Aspirin/Acetaminophen/Caffeine 1 each PO DAILY PRN 07/06/21 07/10/21 History [Excedrin Extra Strength Caplet] Atorvastatin [Lipitor] 40 mg PO DAILY 07/06/21 07/06/21 History Dapagliflozin Propanediol [Farxiga] 10 mg PO DAILY 07/06/21 07/06/21 History Mupirocin 2% Oint [Bactroban 2% 1 applic NASAL DAILY 07/06/21 07/10/21 History Oint] Aspirin [Adult Low Dose Aspirin EC] 81 mg PO BID #1 tab 07/10/21 Rx Gabapentin [Neurontin] 300 mg PO BID 5 Days #10 cap 07/10/21 Rx HYDROcodone/APAP 7.5-325MG [[place] 1 - 2 tab PO Q6HR PRN #32 tab 07/10/21 Rx 7.5-325] Meloxicam [Mobic] 1 - 2 tab PO DAILY PRN #60 tab 07/10/21 Rx Ondansetron Odt [Zofran Odt] 4 mg PO Q8HR PRN #14 tab 07/10/21 Rx Sennosides-Docusate Sodium 1 tab PO BID #60 tablet 07/10/21 Rx [Senokot-S] Allergies Allergy/AdvReac Type Severity Reaction Status Date / Time No Known Allergies Allergy Verified 07/06/21 11:34 Physical Exam Vitals: Vital Signs Temp Pulse Resp BP Pulse Ox 07/11/21 08:07 98.4 F 60 17 112/66 97 07/11/21 07:34 98.4 F 60 17 112/66 97 07/11/21 00:47 98.1 F 64 129/62 96 07/10/21 22:25 122/68 07/10/21 20:50 79 16 109/52 97 07/10/21 19:00 71 16 110/59 98 07/10/21 18:00 70 16 112/65 98 07/10/21 16:55 58 L 16 110/60 97 07/10/21 16:24 58 L 16 120/57 97 07/10/21 16:09 59 L 16 120/73 96 07/10/21 15:54 61 16 122/61 97 07/10/21 15:39 59 L 16 124/68 96 07/10/21 15:26 65 16 137/65 98 07/10/21 15:11 64 16 129/63 98 07/10/21 14:56 69 16 129/63 100 07/10/21 12:36 67 16 123/61 96 Intake and Output 07/10/21 07/11/21 07/11/21 22:59 06:59 14:59 Intake Total 925 1700 Output Total 800 1800 Balance 125 -100 Intake: IV 925 Intake, IV Titration 1200 Amount Lactated Ringers 1,000 ml 1200 @ 100 mls/hr IV .Q10H JOSE Rx#:[id number] Oral 500 Output: Urine 800 1800 Other: Weight 108.2 kg Results CBC & Chem 7: 07/11/21 04:18 Labs: Abnormal Lab Results - Last 24 Hours (Table) 07/11/21 Range/Units 04:18 Hgb 9.5 L (13.0-17.0) g/dL Hct 32.7 L (39.6-50.0) % MCV 72.8 L (80.0-97.0) fL MCH 21.2 L (27.0-32.0) pg MCHC 29.1 L (32.0-37.0) g/dL RDW 17.3 H (11.5-14.5) % Immature Gran # 0.05 H (0.00-0.04) X 10*3/uL Eosinophils # 0.02 L (0.04-0.35) X 10*3/uL
== END 2021-07-11 13:58 | disposition home or self-care (01) ==
LOC: OR 10:45 → 4SSUR 21:00 → OR 07-11 07:32 → 4SSUR 07-11 07:32
PROVIDERS: ADMIT Orthopaedic Surgery; ATTEND Orthopaedic Surgery
DX: M17.12 Unilateral primary osteoarthritis, left knee (principal); K21.9 Gastro-esophageal reflux disease without esophagitis; E78.5 Hyperlipidemia, unspecified; H91.90 Unspecified hearing loss, unspecified ear; E11.9 Type 2 diabetes mellitus without complications; I10 Essential (primary) hypertension; I25.10 Atherosclerotic heart disease of native coronary artery without angina pectoris; F32.A Depression, unspecified; E55.9 Vitamin D deficiency, unspecified; F20.9 Schizophrenia, unspecified; F31.9 Bipolar disorder, unspecified; N40.0 Benign prostatic hyperplasia without lower urinary tract symptoms; K30 Functional dyspepsia; Z98.890 Other specified postprocedural states; Z83.3 Family history of diabetes mellitus; Z82.49 Family history of ischemic heart disease and other diseases of the circulatory system; Z79.84 Long term (current) use of oral hypoglycemic drugs; Z79.899 Other long term (current) drug therapy; Z79.82 Long term (current) use of aspirin; M21.162 Varus deformity, not elsewhere classified, left knee
CPT/HCPCS: 97161; 64999; 64448; 76942; 85025; 88300; 73560; 27447; G0378; C1776; C1713; J2250; J3370; J1100; J0690 ×3; J2405; J3010; J2795; J0330; J2704; J1170; J2001

== ENCOUNTER → 2021-07-20 | Outpatient (CLI) | payer OTHER ==
--- NOTE | 2021-07-20 14:35 | US ---
EXAMINATION TYPE: US venous doppler duplex LE LT DATE OF EXAM: 07/20/2021 2:25 PM COMPARISON: US March 02, 2019 CLINICAL HISTORY: M25.562 PAIN LT KNEE. Pain. No hx of DVT. Patient had left knee replacement 2 weeks ago. Hx johnston's cyst. History of left knee MCL repair. SIDE PERFORMED: Left TECHNIQUE: The lower extremity deep venous system is examined utilizing real time linear array sonog lilo with graded compression, doppler sonography and color-flow sonography. VESSELS IMAGED: Common Femoral Vein Deep Femoral Vein Greater Saphenous Vein * Femoral Vein Popliteal Vein Small Saphenous Vein * Proximal Calf Veins (* superficial vessels) Left Leg: Exam is limited due to edema. No evidence of DVT in veins imaged at this time. Unable to v isualize calf veins at ankle due to great amount of edema. Complex area seen medial-posterior knee: 5.6 x 3.5 x 1.9 cm. IMPRESSION: Slightly suboptimal study. No ultrasound evidence for acute DVT in the left lower extrem ity. Moderate-size popliteal cyst noted. Moderate to severe subcutaneous edema at left calf level is present towards the end of study.
== END | disposition home or self-care (01) ==
LOC: RADUSWWP 13:21
PROVIDERS: ATTEND Orthopaedic Surgery
DX: M71.22 Synovial cyst of popliteal space [Baker], left knee (principal); Z96.652 Presence of left artificial knee joint

== ENCOUNTER → 2022-08-16 | Outpatient (CLI) | payer OTHER ==
[2022-08-16 16:04] LABS: Basophils # (A) 0.05 X 10*3/uL (0.00-0.10); Basophils % (A) 0.8 %; Eosinophils # (A) 0.13 X 10*3/uL (0.04-0.35); Eosinophils % (A) 2.2 %; HCT 35.3 % (39.6-50.0); HGB 10.2 g/dL (13.0-17.0); Immature Grans, Automated 0.3 %; Lymphocytes # (A) 1.89 X 10*3/uL (0.90-5.00); Lymphocytes % (A) 31.4 %; MCH 20.6 pg (27.0-32.0); MCHC 28.9 g/dL (32.0-37.0); MCV 71.2 fL (80.0-97.0); Mean Platelet Volume 10.7 fL (9.5-12.2); Monocytes # (A) 0.52 X 10*3/uL (0.20-1.00); Monocytes % (A) 8.7 %; NRBC Per 100 WBC 0 /100 WBCS (0.0-0.0); Neutrophils % (A) 56.6 %; Platelet Count 228 X 10*3/uL (140-440); RBC 4.96 X 10*6/uL (4.40-5.60); RDW 17.7 % (11.5-14.5); WBC 6.01 X 10*3/uL (4.50-10.00)
== END | disposition home or self-care (01) ==
LOC: LABPAT 11:22
PROVIDERS: ATTEND Surgery
DX: Z01.818 Encounter for other preprocedural examination (principal); K40.90 Unilateral inguinal hernia, without obstruction or gangrene, not specified as recurrent
CPT/HCPCS: 85025; 93005

== ENCOUNTER 2022-08-22 09:47 | Day surgery (SDC) | payer OTHER ==
[2022-08-20 15:27] VITALS: BMI 26.9
[~2022-08-22 09:47] MED LIST changes: +DEXAMETHASONE SOD PHOSPHATE 4 MG/ML 1 ML VIAL IV ONE; +HEPARIN SODIUM,PORCINE/PF 5,000 UNIT/0.5 ML SYRINGE SQ PRN; +HYDROmorphone 0.5 MG/0.5 ML SYRINGE IVP PRN; +LACTATED RINGERS 1,000 ML IV SCH; +LIDOCAINE 1% (10MG/ML) FOR IV START INTRADERMA PRN; -MELOXICAM 7.5 MG TAB PO PRN; +METOCLOPRAMIDE 5 MG/ML 2 ML VIAL IVP PRN; +ONDANSETRON 4 MG/2 ML VIAL IVP ONE; -ONDANSETRON 4 MG/2 ML VIAL IVP PRN; -TRANEXAMIC ACID IN NACL,ISO-OS 1,000 MG in SALINE 1 100ML.BAG IVPB PRN
[2022-08-22 10:46] LABS: Glucose,Whole Blood 129 mg/dL (70-110)
[2022-08-22] MEDS ORDERED: fentaNYL (PF) 50 MCG/ML 2 ML AMP IVP ONE (11:20)
[2022-08-22] MEDS ORDERED: MIDAZOLAM 2 MG/2 ML VIAL IVP ONE (11:20)
[2022-08-22] MEDS ORDERED: HYDROmorphone (PF) 1 MG/ML ONE (11:40)
[2022-08-22] MEDS ORDERED: SUCCINYLCHOLINE CHLORIDE 200 MG/10 ML VIAL IV ONE (11:40)
[2022-08-22] MEDS ORDERED: KETAMINE 10 MG/ML 20 ML VIAL ONE (11:40)
[2022-08-22] MEDS ORDERED: fentaNYL (PF) 50 MCG/ML 2 ML AMP ONE (11:40)
[2022-08-22] MEDS ORDERED: KETOROLAC 15 MG/ML 1 ML VIAL ONE (11:40)
[2022-08-22] MEDS ORDERED: ROCURONIUM 10 MG/ML (5 ML VIAL) IV ONE (11:40)
[2022-08-22] MEDS ORDERED: GLYCOPYRROLATE 0.2 MG/ML 2 ML VIAL ONE (11:40)
[2022-08-22] MEDS ORDERED: PROPOFOL 10 MG/ML 20 ML VIAL IV ONE (11:40)
[2022-08-22] MEDS ORDERED: DEXAMETHASONE SOD PHOSPHATE 4 MG/ML 1 ML VIAL ONE (11:40)
[2022-08-22] MEDS ORDERED: BUPIVACAINE (PF) 0.5% 30 ML VIAL ONE (11:40)
[2022-08-22] MEDS ORDERED: LIDOCAINE 2% INJ 20 MG/ML (2 ML VIAL) ONE (11:40)
[2022-08-22] MEDS ORDERED: MIDAZOLAM 2 MG/2 ML VIAL ONE (11:40)
[2022-08-22] MEDS ORDERED: NEOSTIGMINE 1 MG/ML 10 ML VIAL ONE (11:40)
[2022-08-22] MEDS ORDERED: BUPIVACAINE (PF) 0.25% 30 ML VIAL SQ ONE (12:06)
--- NOTE | 2022-08-22 12:07 | P.ANPRN ---
Procedure Note - Anesthesia - Nerve Block Performed Bilateral Erector Spinae Time Out Performed: Yes (:19) Date of Procedure: 08/22/22 Procedure Start Time: Procedure Stop Time: Location of Patient: PreOp Indication: Acute Post-Operative Pain, Requested by Surgeon (Dr Melendez) Sedation Type: Sedate with meaningful contact maintained Preparation: Sterile Prep Position: Prone Catheter: None Needle Types: Pajunk Needle Gauge: 21 Ultrasound used to visualize needle placement: Yes Ultrasound used to observe medication spread: Yes Injectate: 0.5% Ropivacaine (see comment for volume) (15cc +10cc PF Normal saline each side) Blood Aspirated: No Pain Paresthesia on Injection Noted: No Resistance on Injection: Normal Image Stored and Saved: Yes Events: Uneventful and Well Tolerated
--- NOTE | 2022-08-22 12:37 | P.OP ---
Date of Procedure: 08/22/22 Preoperative Diagnosis: Right inguinal hernia Postoperative Diagnosis: Right inguinal hernia Procedure(s) Performed: Laparoscopic robotic system repair of radial hernia Excision of right cord lipoma Transversus abdominis plane block Anesthesia: LULU Surgeon: Wilmer Melendez Estimated Blood Loss (ml): 5 Pathology: other (Cord lipoma) Condition: stable Disposition: PACU Description of Procedure: The patient's placed on the operating table in the supine position. The patient received general anesthesia. The patient's abdomen was prepped and draped in usual sterile fashion. The skin was anesthetized 1% local Xylocaine at the incision sites. Using an 11 blade a skin incision was made at the umbilicus. The fascia was grasped with a Leigha and then the peritoneal cavity was entered with the Veress needle. Position of the Veress needle was confirmed with a positive drop test. After adequate insufflation a 5 mm trocar was placed into the peritoneal cavity. The Laparoscope was placed the peritoneal cavity. And a robotic 8 mm trocar was placed in the right lateral position and then another 8 mm robotic trochars placed in the left lateral position. The original 5 mm trocar was exchanged for a 12 mm trocar. A four-quadrant transversus abdominis plane block was performed using 1% local Xylocaine. The patient was placed in reverse Trendelenburg and then the patient was docked to the robot. Next the peritoneum over top of the hernia was incised and then using blunt and sharp dissection and electrocautery the hernia sac was dissected free from the floor of the inguinal canal. The cord lipoma was dissected free sent to pathology. The hernia sac was completely reduced into the peritoneal cavity. And then using the Pro statement clerks manager mesh the hernia was repaired. The peritoneum was then sutured with 20V lock suture. The patient was then undocked the robot. The needle was withdrawn from the peritoneal cavity. The umbilical trocar site was closed with 0 Ethibond suture. The skin was closed interrupted 3-0 Monocryl suture. Dermabond dressing was applied. Patient was sent to recovery in stable condition.
[2022-08-22 13:00] VITALS: TEMP 98
[2022-08-22 14:30] VITALS: RESP 20
[2022-08-22 15:02] VITALS: BP 130/78; PULSE 72
== END 2022-08-22 15:41 | disposition home or self-care (01) ==
LOC: OR 09:47
PROVIDERS: ATTEND Surgery
DX: K40.90 Unilateral inguinal hernia, without obstruction or gangrene, not specified as recurrent (principal); D17.6 Benign lipomatous neoplasm of spermatic cord; G89.18 Other acute postprocedural pain; I10 Essential (primary) hypertension; I25.10 Atherosclerotic heart disease of native coronary artery without angina pectoris; I38 Endocarditis, valve unspecified; E78.5 Hyperlipidemia, unspecified; E11.9 Type 2 diabetes mellitus without complications; M19.90 Unspecified osteoarthritis, unspecified site; F41.9 Anxiety disorder, unspecified; F20.9 Schizophrenia, unspecified; F31.9 Bipolar disorder, unspecified; Z79.82 Long term (current) use of aspirin; Z79.84 Long term (current) use of oral hypoglycemic drugs; Z79.899 Other long term (current) drug therapy
CPT/HCPCS: 49650; S2900; 64999; 86850; 86900; 86901; 88304

== ENCOUNTER → 2023-03-04 | Outpatient (CLI) | payer MEDICARE ==
--- NOTE | 2023-03-04 10:47 | P.PAINPG ---
PQRS Measure Charge Sheet Comment: HISTORY OF PRESENT ILLNESS: A 67 yr old male as a referral from Dr Phan presents today w severe and chronic LBP x 1 yr secondary to DDD, spondylosis and facet arthropathy without myelopathy for evaluation. Pt states pain level is provoked at 9 /10 in intensity, constant, localized in the L lumbar spine, predominantly axial, sharp in character without shooting pain. Pain is provoked by bending. Pain is alleviated by PT in 2021, medications (Excedrin), heat, repositioning and rest. Oswestry axial pain score at 28. PMH: OA, CAD, NIDDM II, GERD, Hyperlipidemia, HTN, BPH, Anxiety/ Borderline Schizophrenia PSH: Laparoscopic Hernia Repair (2022), Heart Catheterization, Umbilical Hernia Repair, L Knee Surgery x2, Colonoscopy x2/ EGD SH: Never smoker, Occasional ETOH use, No illicit drug use FH: Fa- CVA/ TIA. All: See list Meds: See list REVIEW OF ORGAN SYSTEMS: CONSTITUTIONAL: No fevers or chills. No recent weight loss. NEUROLOGICAL: + numbness and tingling along the distal extremities. No seizure disorders or headaches. MUSCULOSKELETAL: + pain PSYCHIATRIC: Denies current depression or suicidal thoughts. Physical Examinations : Constitutional : Cooperative , not in acute distress . Neurologic : Cranial nerve II to XII intact. No focal neurological deficits. Psychiatric : alert & oriented x 3. Matching mood & appropriate affect. Judgment & insight intact. Musculoskeletal : Cervical Spine Motor strength in the deltoid and biceps: Normal right side. Normal Left side Motor strength biceps and the wrist extensors: Normal right side . Normal left side Motor strength in the triceps muscle: Normal right side. Normal left side Deep tendon reflexes: Normal at the biceps. Normal at Brachioradialis. Normal at triceps Vertebral body tenderness to deep palpation over Cervical facet loading test: positive bilaterally Spurling test: positive bilaterally Neck distraction test: positive bilaterally Rosas sign: positive bilaterally Lumbar spine Motor strength lower extremities ,thigh and legs 5/5 Right side , 5/5 Left side Deep tendon reflexes : Normal Knee Jerk. Normal Ankle Jerk Vertebral body tenderness over L4 Rasmussen Test positive Lumbar facet Loading Test: positive Right / positive Left Range of motion of the lumbar spine Flexion 30 degrees, extension 10 degrees Straight Leg Raise test: Left/ Right positive at 35 degrees Bunny test: positive right / positive left. Severe tenderness over the Sacroiliac joint on the Right / Left sides Gaenslen test: positive bilaterally Seated flexion test: positive bilaterally. Sacral spine : Severe tenderness over the Sacroiliac joint: right side / left side Range of motion: Flexion of the lumbar spine <60 degrees Range of motion: Extension of the lumbar spine <20 degrees Gaenslen's Test positive Bunny test: positive right side / left side Thigh Thrust Test Sacral Thrust Test Imaging: MRI noncontrast of the lumbar spine from 02/20/23 reviewed Assessment/ Plan : Lumbar dextroscoliosis Recommendation of GEORGINAI L4-L5 #1. May need a series of injections for optimal pain relief. Risks, benefits of procedure discussed and patient verbalized understanding. Admits to anti- coagulant use or medical history of diabetes. Protocol for discontinuation/ continuation of medications dank procedure discussed. All questions answered. I have spent greater than 30 minutes on patient care today. Dr Alvares was available by phone for the evaluation of this patient. The time was used to review the medical records including relevant urine studies and Prescription history (MAPs), review of the available imaging, evaluation and examination of the patient, coordination of care with the medical staff and if applicable referring physicians, as well as creation of the medical record PQRS Narrative: Smoking Status Never smoker Home Medications: Ambulatory Orders ARIPiprazole [Abilify] 30 mg PO HS 01/07/19 Benztropine Mesylate [Cogentin] 1 mg PO HS 01/07/19 FLUoxetine HCL [PROzac] 20 mg PO HS 01/07/19 Fenofibrate Nanocrystallized [Fenofibrate] 145 mg PO HS 01/07/19 Glimepiride [Amaryl] 4 mg PO BID 01/07/19 LORazepam [Ativan] 3 mg PO HS 01/07/19 Lansoprazole [Prevacid] 30 mg PO HS 01/07/19 lisinopriL [Zestril] 2.5 mg PO HS 01/07/19 Aspirin/Acetaminophen/Caffeine [Excedrin Extra Strength Caplet] 1 each PO DAILY PRN 07/06/21 Atorvastatin [Lipitor] 40 mg PO DAILY 07/06/21 Dapagliflozin Propanediol [Farxiga] 10 mg PO DAILY 07/06/21 Aspirin [Adult Low Dose Aspirin EC] 81 mg PO BID #1 tab 07/10/21 HYDROcodone/APAP 7.5-325MG [[place] 7.5-325] 1 - 2 tab PO Q6HR PRN #32 tab 07/10/21 metFORMIN HCL [Glucophage] 1,000 mg PO DAILY 08/20/22 Acetaminophen Tab [Tylenol] 650 mg PO Q6H #30 tab 08/22/22 Docusate [Colace] 100 mg PO BID #20 capsule 08/22/22 Ibuprofen [Motrin] 600 mg PO Q6HR PRN #40 tab 08/22/22 oxyCODONE HCL [OxyIR] 5 mg PO Q6H PRN 3 Days #10 tab 08/22/22 Controlled Substance Measures - Controlled Substance Measures Is patient prescribed a controlled substance at discharge?: No
[2023-03-04 11:04] VITALS: BP 143/72; PULSE 85; RESP 15; TEMP 98.3
== END ==
LOC: PNWHC3 10:10
PROVIDERS: ATTEND Specialist
DX: M48.061 Spinal stenosis, lumbar region without neurogenic claudication (principal); M41.86 Other forms of scoliosis, lumbar region; M19.90 Unspecified osteoarthritis, unspecified site; I25.10 Atherosclerotic heart disease of native coronary artery without angina pectoris; E11.9 Type 2 diabetes mellitus without complications; K21.9 Gastro-esophageal reflux disease without esophagitis; E78.5 Hyperlipidemia, unspecified; I10 Essential (primary) hypertension; N40.0 Benign prostatic hyperplasia without lower urinary tract symptoms; F41.9 Anxiety disorder, unspecified; Z79.82 Long term (current) use of aspirin; Z79.899 Other long term (current) drug therapy; Z79.84 Long term (current) use of oral hypoglycemic drugs
CPT/HCPCS: 99211

== ENCOUNTER 2023-03-19 06:24 | Day surgery (SDC) | payer MEDICARE ==
[2023-03-19] MEDS ORDERED: LACTATED RINGERS 1,000 ML IV SCH (06:51)
[2023-03-19 07:03] VITALS: PULSE 67; TEMP 97.4
[2023-03-19 07:03] LABS: Glucose,Whole Blood 277 mg/dL (70-110)
[2023-03-19] MEDS ORDERED: methylPREDNISolone ACETATE 40 MG/ML 1 ML VIAL ONE (07:46)
[2023-03-19] MEDS ORDERED: ROPIVACAINE 5MG/ML 20ML VIAL ONE (07:46)
[2023-03-19] MEDS ORDERED: IOPAMIDOL M200 10 ML VIAL ONE (07:46)
--- NOTE | 2023-03-19 08:22 | P.PCN ---
Description of Procedure: PREOPERATIVE DIAGNOSIS: 1- Lumbar Degenerative Disc Diseases 2-Lumbar spondylosis with Facet arthropathy without myelopathy. 3-lumbar spinal stenosis POSTOPERATIVE DIAGNOSIS: 1-lumbar degenerative disc disease. 2-lumbar spondylosis with facet arthropathy without myelopathy. 3-lumbar spinal stenosis. PROCEDURE Injection of radio contrast material into L5-S1 interspace, interpretation of epidurogram, injection of steroid at L5-[id number] space under fluoroscopic guidance. ANESTHESIA: Lidocaine 1% subcutaneously. In OR continuous pulse ox, EKG, blood pressure and verbal communication was maintained with the patient. EBL: Minimal PROCEDURE INDICATION: Before the procedure were discussed with the patient detailed procedure, alternatives, complications including infection, bleeding, nerve damage, paralysis all of which could be permanent. Patient understands and all questions were answered. PROCEDURE DESCRIPTION : After getting consent, patient in OR in prone position. Back was prepped with chlorhexidine and draped in sterile fashion. After injecting 10 mL of 1% lidocaine subcutaneously, a 20-gauge Tuohy needle was introduced at L4 5 interspace with loss of resistance technique using a syringe filled with air. Unable to get into the epidural space at this level. Decided to go one level below at L5-S1. Negative CSF, negative blood, negative paresthesia. Needle position was confirmed with AP and lateral view of the fluoroscope. After repeat negative aspiration 2 mL of Omnipaque 200 water soluble contrast was injected. Contrast was noted in the epidural space. No contrast was noted into intrathecal or intravascular space. After repeat negative aspiration 6 mL solution was injected intermittently which consists of 5 mL of preservative-free normal saline mixed with 1 mL of 40 mg Depo-Medrol. Needle was withdrawn intact. Skin was cleansed and Band-Aids was applied. DISPOSITION / PLANS: The patient tolerated the procedure well. No complication. The patient was placed in a supine position and transferred to the recovery area in a stable condition for observation. There was no evidence of lower extremity motor or sensory deficit after the procedure. Patient was discharged from the recovery room after meeting discharge criteria. Home discharge instructions were given to the patient by the staff. The patient was reexamined prior to discharge. The patient will schedule a follow up in the clinic in 2-4 weeks.
[2023-03-19 08:36] VITALS: BP 127/71; RESP 16
--- NOTE | 2023-03-19 08:48 | FL ---
EXAMINATION TYPE: FL guided pain mgmt statistic Intraoperative/procedural fluoroscopic services were provided. Total fluoroscopy time is 38.8 seconds with a total of 2 submitted images to PACS. Please s ee the operative/procedural note for further details. DAP: [id number] Gycm2
== END 2023-03-19 08:27 | disposition home or self-care (01) ==
LOC: ORPAIN 06:24
PROVIDERS: ATTEND Pain Medicine Interventional Pain Medicine
DX: M48.061 Spinal stenosis, lumbar region without neurogenic claudication (principal); M51.36 Other intervertebral disc degeneration, lumbar region; M47.816 Spondylosis without myelopathy or radiculopathy, lumbar region; E11.9 Type 2 diabetes mellitus without complications; Z79.84 Long term (current) use of oral hypoglycemic drugs
CPT/HCPCS: 62323; J1030; Q9966; J2795